=== PATIENT | female | born 1970 | race Hispanic/Latino ===

== ENCOUNTER 2021-11-06 08:41 | Emergency (ER) | payer OTHER ==
[~2021-11-06] VITALS: Ht 152.4 cm; Wt 81.6 kg
[2021-11-06] MEDS ORDERED: AMLODIPINE BESYLATE 5 MG TAB PO NR (09:00)
[2021-11-06] MEDS ORDERED: FAMOTIDINE 20 MG/2 ML VIAL IV NR (09:00)
[2021-11-06 09:14] LABS: BASOPHILS % 0.3 % (0.0-1.0); EOSINOPHILS # (AUTO) 0.1 (0.0-0.4); HEMATOCRIT 42.8 % (34.2-44.1); HEMOGLOBIN 14.3 g/dL (12.0-16.0); LYMPHOCYTES # (AUTO) 1.9 (1.0-3.2); LYMPHOCYTES % 30.5 % (18.0-39.1); MEAN CORPUSCULAR HEMOGLOBIN 29.9 pg (28-32); MEAN CORPUSCULAR HGB CONC 33.4 g/dL (31-35); MEAN CORPUSCULAR VOLUME 89.5 fL (81-99); MONOCYTES # (AUTO) 0.3 (0.2-0.8); MONOCYTES % 5.4 % (4.4-11.3); NEUTROPHILS # (AUTO) 3.8 (2.1-6.9); NEUTROPHILS % 61.6 % (38.7-80.0); PLATELET COUNT 269 x10e3/uL (140-360); RED BLOOD COUNT 4.78 x10e6/uL (3.6-5.1); RED CELL DISTRIBUTION WIDTH 13.2 % (11.7-14.4)
[2021-11-06 09:19] LABS: CLARITY,URINE SL CLOUDY (CLEAR); COLOR,URINE YELLOW (YELLOW); KETONES,URINE NEGATIVE (NEGATIVE); LEUKOCYTE ESTERASE ,URINE SMALL (NEGATIVE); NITRITE,URINE NEGATIVE (NEGATIVE); PROTEIN,URINE DIPSTICK NEGATIVE (NEGATIVE); URINE UROBILINOGEN 0.2 mg/dL (0.2 - 1)
[2021-11-06 09:22] LABS: BACTERIA,URINE MODERATE /HPF; EPITHELIAL CELLS,URINE MODERATE /LPF; RBC,URINE 0-5 /HPF (0-5)
[2021-11-06 09:34] LABS: ALBUMIN 3.7 g/dL (3.5-5.0); ANION GAP 13.7 mmol/L (8-16); CALCIUM 8.8 mg/dL (8.4-10.2); CREATININE, SERUM 0.81 mg/dL (0.57-1.11); POTASSIUM 3.7 mmol/L (3.5-5.1)
[2021-11-06] MEDS ORDERED: CEPHALEXIN500 MG PO (09:45)
[2021-11-06 10:41] VITALS: BP 162/103
== END 2021-11-06 10:25 | disposition home or self-care (01) ==
LOC: ER 08:52
DX: N39.0 Urinary tract infection, site not specified (principal); R07.89 Other chest pain; I10 Essential (primary) hypertension; Z88.6 Allergy status to analgesic agent; Z79.899 Other long term (current) drug therapy
CPT/HCPCS: 36415; 71045; 80053; 81001; 83690; 84484; 85025; 93005; 99284

== ENCOUNTER 2024-11-21 13:24 | Emergency (ER) | payer BC ==
[~2024-11-21] VITALS: Ht 152.4 cm; Wt 81.6 kg
[~2024-11-21 13:24] MED LIST: CEPHALEXIN500 MG PO; XOFLUZA80 MG PO
[2024-11-21 14:11] LABS: CORONAVIRUS COVID-19 AG POSITIVE (NEGATIVE); INFLUENZA A AG NEGATIVE (NEGATIVE); INFLUENZA B AG NEGATIVE (NEGATIVE); STREPTOCOCCUS GRP A ANTIGEN NEGATIVE (NEGATIVE)
[2024-11-21] MEDS ORDERED: GUAIFENESIN-DM1 EAC1 PO (14:31)
[2024-11-21 14:37] VITALS: PULSE 82; RESP 16; TEMP 99.8; O2SAT 100
== END 2024-11-21 14:39 | disposition home or self-care (01) ==
LOC: ER 13:31
DX: H92.03 Otalgia, bilateral (principal); U07.1 COVID-19; I10 Essential (primary) hypertension; E78.5 Hyperlipidemia, unspecified
CPT/HCPCS: 83518; 87070; 99283